=== PATIENT | female | born 1960 | race Caucasian/White ===

== ENCOUNTER 2016-05-21 13:19 | Emergency (ER) | payer BC ==
[2016-05-21 15:09] VITALS: BP 188/82
--- NOTE | 2016-05-21 15:18 | UC ---
Lower Extremity/Ankle HPI - HPI Summary HPI Summary: Stubbed left first and second of the foot against a couch yesterday. Has pain with weight bearing despite jesus taping and frequent ice. - History of Current Complaint Chief Complaint: UCLowerExtremity Stated Complaint: LEFT FOOT,BIG TOE INJURY Time Seen by Provider: 05/21/16 15:04 Hx Obtained From: Patient ?: No Onset/Duration: Sudden Onset, Lasting Days - 2 Severity Initially: Moderate Severity Currently: Moderate Pain Intensity: 6 Pain Scale Used: 0-10 Numeric Aggravating Factor(s): Standing, Ambulation Alleviating Factor(s): Rest, Ice, OTC Meds - ibuprofen 400mg every 6 hours - Risk Factors Gout Risk Factors: Age Over 40 DVT Risk Factors: Negative Septic Arthritis Risk Factor: Negative - Allergies/Home Medications Allergies/Adverse Reactions: Allergies Allergy/AdvReac Type Severity Reaction Status Date / Time No Known Allergies Allergy Verified 05/21/16 15:09 Home Medications: Home Medications NK [No Home Medications Reported] 05/21/16 [History Confirmed 05/21/16] PMH/Surg Hx/FS Hx/Imm Hx Previously Healthy: Yes - Was on treatment for hypertension until a year ago; dizzy on meds Cardiovascular History Of: Reports: Hypertension - NOT ON MEDS NOW Denies: Pacemaker/ICD - Surgical History Surgical History: Yes Surgery Procedure, Year, and Place: Rt ANKLE- FRACTURED ABOUT 20 YRS AGO ( PLATES & SCREWS REMOVED); C SECTION -25 YRS AGO; Lt BREAST BIOPSY MARKER. hysterectomy - Family History Known Family History: Positive: Unknown - Adopted. - Social History Occupation: Employed Full-time - teaches gym grades K to 5 Alcohol Use: Occasionally Substance Use Type: None Smoking Status (MU): Former Smoker Type: Cigarettes Amount Used/How Often: social use Have You Smoked in the Last Year: No Review of Systems Constitutional: Negative Skin: Negative Eyes: Negative ENT: Negative Respiratory: Negative Cardiovascular: Other - blood pressure elevated today. No chest pain or dyspnea Gastrointestinal: Negative Genitourinary: Negative Motor: Negative Neurovascular: Negative Musculoskeletal: Arthralgia Neurological: Negative Psychological: Negative All Other Systems Reviewed And Are Negative: Yes Physical Exam Triage Information Reviewed: Yes Appearance: Well-Appearing Vital Signs: Initial Vital Signs Pulse 80 05/21/16 15:03 Resp 17 05/21/16 15:03 BP 188/82 05/21/16 15:03 Pulse Ox 98 05/21/16 15:03 Vital Signs Reviewed: Yes Eyes: Positive: Conjunctiva Clear ENT: Positive: Hearing grossly normal Neck exam: Normal Respiratory: Positive: Lungs clear, Normal breath sounds Cardiovascular: Positive: RRR, No Murmur Musculoskeletal: Positive: Other: - tenderness base of left great toe. Moderate swelling of first and second digits. No obvious deformity. Psychological Exam: Normal Skin: Positive: Other - erythema medial left foot is permanent post playing soccer. Diagnostics - Laboratory Diagnostic Studies Completed/Ordered: xray left great toe shows non-displaced fracture of the proximal phalanx. Lower Extremity Course/Dx - Course Course Of Treatment: jesus tape, ice, elevation, supportive shoe. will follow up with orthopedist in [place]. has crutches at home for prn use. - Differential Dx/Diagnosis Differential Diagnosis/HQI/PQRI: Contusion, Fracture (Closed) Provider Diagnoses: non displaced fracture left first digit of foot (proximal phalanx) Discharge - Discharge Plan Condition: Stable Disposition: HOME Patient Education Materials: Toe Fracture (ED) Forms: *Work Release Additional Instructions: Continue ice and elevation, jesus taping of the first and second digits of the left foot. Use a supportive shoe. As discussed, you have an othopedic evaluation pending in a couple of weeks in [place] and you will have them check the fracture healing.
--- NOTE | 2016-05-21 15:50 | RAD ---
INDICATION: Left great toe injury COMPARISON: None TECHNIQUE: AP, lateral, and oblique views were obtained. FINDINGS: There is an intra-articular fracture involving the proximal phalanx of the great toe at the interphalangeal joint. The fracture is essentially nondisplaced. There is associated soft tissue swelling. No additional significant bony or soft tissue findings. IMPRESSION: FRACTURE THE GREAT TOE DESCRIBED.
== END 2016-05-21 16:14 | disposition home or self-care (01) ==
LOC: UCCORT 13:19
DX: S92.415A Nondisplaced fracture of proximal phalanx of left great toe, initial encounter for closed fracture (principal); W23.0XXA Caught, crushed, jammed, or pinched between moving objects, initial encounter; Y93.9 Activity, unspecified; Y92.9 Unspecified place or not applicable; Z87.891 Personal history of nicotine dependence
CPT/HCPCS: 99212; G0463

== ENCOUNTER 2016-11-05 11:43 | Emergency (ER) | payer BC ==
--- NOTE | 2016-11-05 12:07 | UC ---
Bite Injury/Animal HPI - HPI Summary HPI Summary: 56 YEAR OLD FEMALE PRESENTS WITH BEE STINGS ON BOTH ANKLES. - History of Current Complaint Stated Complaint: RIGHT LEG/LEFT ANKLE BEE STING 11/03 Time Seen by Provider: 11/05/16 12:06 - Allergies/Home Medications Allergies/Adverse Reactions: Allergies Allergy/AdvReac Type Severity Reaction Status Date / Time No Known Allergies Allergy Verified 11/05/16 12:28 PMH/Surg Hx/FS Hx/Imm Hx Previously Healthy: Yes - Surgical History Surgical History: Yes Surgery Procedure, Year, and Place: Rt ANKLE- FRACTURED ABOUT 20 YRS AGO ( PLATES & SCREWS REMOVED); C SECTION -25 YRS AGO; Lt BREAST BIOPSY MARKER. hysterectomy - Family History Known Family History: Positive: Unknown - Adopted., Hypertension - Social History Alcohol Use: Occasionally Substance Use Type: None Smoking Status (MU): Former Smoker Type: Cigarettes Amount Used/How Often: social use Have You Smoked in the Last Year: No Review of Systems Constitutional: Negative Skin: Rash - BEESTING ON BOTH ANKLES Eyes: Negative ENT: Negative Respiratory: Negative Cardiovascular: Negative Gastrointestinal: Negative Genitourinary: Negative Motor: Negative Neurovascular: Negative Musculoskeletal: Negative Neurological: Negative Psychological: Negative All Other Systems Reviewed And Are Negative: Yes Physical Exam Triage Information Reviewed: Yes Vital Signs Reviewed: Yes Eye Exam: Normal ENT Exam: Normal Dental Exam: Normal Neck exam: Normal Neck: Positive: 1 Respiratory Exam: Normal Cardiovascular Exam: Normal Abdominal Exam: Normal Musculoskeletal Exam: Normal Neurological Exam: Normal Psychological Exam: Normal Skin: Positive: rashes - BEE STING BOTH ANKLES Bite Injury Course/Dx - Differential Dx/Diagnosis Provider Diagnoses: BEE STING BOTH ANKLES Discharge - Discharge Plan Condition: Stable Disposition: HOME Prescriptions: LoraTADine TAB(NF) [Claritin 10 MG TAB(NF)] 10 mg PO DAILY #30 tab Methylprednisolone [Medrol Dosepak 4 MG*] 4 mg PO .SEE MAHENDRA INSTRUCTION #21 tab Triamcinolone 0.1% CREAM(NF) [Kenalog 0.1% Cream (NF)] 1 applic TOPICAL TID PRN #90 gm PRN Reason: Itching Patient Education Materials: Insect Bite or Sting (ED) Referrals: Joseph Cobian DO [Primary Care Provider] -
[2016-11-05 12:28] VITALS: BP 159/71
== END 2016-11-05 12:42 | disposition home or self-care (01) ==
LOC: UCCORT 11:43
DX: T63.441A Toxic effect of venom of bees, accidental (unintentional), initial encounter (principal); Y92.9 Unspecified place or not applicable; Z87.891 Personal history of nicotine dependence
CPT/HCPCS: 99212; G0463

== ENCOUNTER 2017-05-15 13:03 | Emergency (ER) | payer BC ==
[2017-05-15 16:09] VITALS: BP 170/79
--- NOTE | 2017-05-15 17:27 | UC ---
Skin Complaint HPI - HPI Summary HPI Summary: 56 yo female pruritic right forearm rash s/p multiple cat scratches early MAY has been using antiobic ointment - History of Current Complaint Chief Complaint: UCRash Time Seen by Provider: 05/15/17 17:12 Stated Complaint: RIGHT FOREARM RASH S/P CAT SCRATCH Hx Obtained From: Patient Onset/Duration: Sudden Onset Skin Exposure Onset/Duration: Days Ago Onset Severity: Mild Current Severity: None Pain Intensity: 0 Pain Scale Used: 0-10 Numeric Location: Discrete Character: Pruritus, Redness, Raised Alleviating Factor(s): Nothing Associated Signs & Symptoms: Positive: Rash - Allergy/Home Medications Allergies/Adverse Reactions: Allergies Allergy/AdvReac Type Severity Reaction Status Date / Time No Known Allergies Allergy Verified 05/15/17 16:08 Review of Systems Constitutional: Negative Skin: Rash Eyes: Negative ENT: Negative Respiratory: Negative Cardiovascular: Negative Gastrointestinal: Negative Genitourinary: Negative Motor: Negative Neurovascular: Negative Musculoskeletal: Negative Neurological: Negative Psychological: Negative Is Patient Immunocompromised?: No All Other Systems Reviewed And Are Negative: Yes PMH/Surg Hx/FS Hx/Imm Hx Previously Healthy: Yes Cardiovascular History: Hypertension - white coat - Surgical History Surgical History: Yes Surgery Procedure, Year, and Place: Rt ANKLE- FRACTURED ABOUT 20 YRS AGO ( PLATES & SCREWS REMOVED); C SECTION -25 YRS AGO; Lt BREAST BIOPSY MARKER. hysterectomy - Family History Known Family History: Positive: Hypertension - Social History Alcohol Use: Daily Substance Use Type: None Smoking Status (MU): Former Smoker Type: Cigarettes Amount Used/How Often: social use Have You Smoked in the Last Year: No Physical Exam Triage Information Reviewed: Yes Appearance: Well-Appearing, No Pain Distress, Well-Nourished Vital Signs: Initial Vital Signs Temp 97.0 F 05/15/17 16:04 Pulse 90 05/15/17 16:04 Resp 18 05/15/17 16:04 BP 170/79 05/15/17 16:04 Pulse Ox 100 05/15/17 16:04 Eyes: Positive: Conjunctiva Clear ENT: Positive: Hearing grossly normal. Negative: Nasal drainage, Trismus, Muffled voice, Hoarse voice Neck: Positive: Supple, Nontender Respiratory: Positive: Lungs clear, Normal breath sounds, No respiratory distress Cardiovascular: Positive: RRR, No Murmur Musculoskeletal: Positive: ROM Intact, No Edema Neurological: Positive: Alert Psychological Exam: Normal Skin Exam: Other Course/Dx - Diagnoses Provider Diagnoses: cat scratch right forearm. contact dermatitis Discharge - Discharge Plan Condition: Stable Disposition: HOME Prescriptions: Amoxicillin/Clavulanate TAB* [Augmentin TAB 875*] 875 mg PO BID #14 tab Patient Education Materials: Contact Dermatitis (ED) Referrals: Magy Redding [Primary Care Provider] - If Needed Additional Instructions: this may be due to a contact dermatitis from the topical antibiotic ointment you may use the steroid cream will have you start an oral antibiotic incase there is infection epsum salts Images Front/Back of Body, Lg ([place]): 1 - multiple parallel scratches. surround papular rash with crust
== END 2017-05-15 17:25 | disposition home or self-care (01) ==
LOC: UCCORT 13:03
DX: S50.811A Abrasion of right forearm, initial encounter (principal); W55.03XA Scratched by cat, initial encounter; Y93.9 Activity, unspecified; Y92.9 Unspecified place or not applicable; L25.9 Unspecified contact dermatitis, unspecified cause
CPT/HCPCS: 99212; G0463